=== PATIENT | female | born 2000 | race Caucasian/White ===

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

== ENCOUNTER 2021-08-19 21:56 | Outpatient (CLI) | payer MEDICAID, SELFPAY ==
[2021-08-19] VITALS (22 sets, daily range): BP systolic 101; BP diastolic 56; PULSE 88–125; RESP 15; TEMP 36.1–36.4; O2SAT 97–100; BMI 32.8
[2021-08-19 23:13] LABS: Bacteria Urine 2+ /hpf; Bilirubin Urine 1+ (Negative); Blood Urine 3+ (Negative); Glucose Urine UA Norm (Normal); Ketones Urine 3+ (Negative); Leukocyte Esterase Urine 2+ (Negative); Mucus Urine TRACE /hpf; Nitrate Urine Negative (Negative); Protein Urine 1+ (Negative); Specific Gravity, Urine 1.025 (1.005-1.030); Urine Appearance Clear (CLEAR); Urine Color Yellow (Yellow); Urobilinogen Urine 4 mg/dL (Negative); WBC Urine 25-40 /hpf (0-5); pH Urine 5 (5-7)
[2021-08-19 23:14] LABS: Add Urine Culture? Yes
[2021-08-20 00:31] VITALS: BP 117/60; PULSE 101
[2021-08-20 01:20] VITALS: BP 117/60; PULSE 101; RESP 15; TEMP 36.4
[2021-08-20 01:48] LABS: Amphetamines Screen Urine Negative (Negative); Barbiturates Screen Urine Negative (Negative); Benzodiazepines Screen Urine Negative (Negative); Cocaine Screen Urine Negative (Negative); Opiate Screen Urine Negative (Negative); PCP Screen Urine Negative (Negative); THC Screen Urine Negative (Negative)
== END 2021-08-20 00:20 | disposition home or self-care (01) ==
LOC: OPOB 21:57 → OBGYN 21:57
PROVIDERS: PCP Family Medicine; Visit Provider Obstetrics & Gynecology
DX: O26.899 Other specified pregnancy related conditions, unspecified trimester (principal); Z3A.00 Weeks of gestation of pregnancy not specified; R10.9 Unspecified abdominal pain
CPT/HCPCS: 59025; 80306; 81001; 87086; 99211

== ENCOUNTER → 2021-11-13 09:53 | Outpatient (BNVA) | payer OTHER, MEDICAID, SELFPAY | PROVIDERS: PCP Family Medicine; Visit Provider Registered Nurse | DX: Z79.899 Other long term (current) drug therapy (principal) | CPT/HCPCS: 80053; 82306; 84443; 85025 ==

== ENCOUNTER → 2022-01-09 16:24 | Outpatient (BNVA) | payer MEDICAID, SELFPAY | PROVIDERS: PCP Family Medicine; Visit Provider Emergency Medicine | DX: S90.31XA Contusion of right foot, initial encounter (principal); X58.XXXA Exposure to other specified factors, initial encounter | CPT/HCPCS: 73630 ==

== ENCOUNTER → 2022-05-30 09:37 | Outpatient (BNVA) | payer MEDICAID, SELFPAY | PROVIDERS: Visit Provider Emergency Medicine | DX: B34.9 Viral infection, unspecified (principal); J02.9 Acute pharyngitis, unspecified | CPT/HCPCS: 87071; 87426; 87880 ==

== ENCOUNTER 2022-09-24 20:25 | Outpatient (CLI) | payer MEDICAID, SELFPAY ==
[2022-09-24 20:37] VITALS: BP 109/69; PULSE 89; TEMP 35.4
[2022-09-24 20:38] VITALS: BMI 30.7
[2022-09-24 20:39] VITALS: RESP 16
[2022-09-24 20:58] LABS: Amphetamines Screen Urine Negative (Negative); Barbiturates Screen Urine Negative (Negative); Benzodiazepines Screen Urine Negative (Negative); Cocaine Screen Urine Negative (Negative); Opiate Screen Urine Negative (Negative); PCP Screen Urine Negative (Negative); THC Screen Urine Negative (Negative)
[2022-09-24 22:04] VITALS: BP 109/64; PULSE 77
== END 2022-09-24 22:09 | disposition home or self-care (01) ==
LOC: OPOB 20:32 → OBGYN 20:34
PROVIDERS: Visit Provider Family Medicine
DX: O47.9 False labor, unspecified (principal); Z3A.00 Weeks of gestation of pregnancy not specified
CPT/HCPCS: 59025; 80306; 99211

== ENCOUNTER → 2023-04-19 16:40 | Outpatient (BNVA) | payer MEDICAID, SELFPAY | PROVIDERS: Visit Provider Nurse Practitioner Family | DX: M79.672 Pain in left foot (principal) | CPT/HCPCS: 73630 ==

== ENCOUNTER → 2023-09-03 16:15 | Outpatient (BNVA) | payer MEDICAID, SELFPAY | PROVIDERS: Visit Provider Emergency Medicine | DX: S86.912A Strain of unspecified muscle(s) and tendon(s) at lower leg level, left leg, initial encounter (principal); X58.XXXA Exposure to other specified factors, initial encounter | CPT/HCPCS: 73562 ==

== ENCOUNTER → 2024-09-19 10:40 | Outpatient (BNVA) | payer OTHER, SELFPAY | PROVIDERS: Visit Provider Psychiatry & Neurology Psychiatry | DX: Z79.899 Other long term (current) drug therapy (principal) | CPT/HCPCS: 80053; 80061; 83036; 84443; 85025 ==

== ENCOUNTER → 2025-01-16 09:36 | Outpatient (BNVA) | payer MEDICAID, SELFPAY | PROVIDERS: Visit Provider Physician Assistant | DX: M25.362 Other instability, left knee (principal); M23.304 Other meniscus derangements, unspecified medial meniscus, left knee; M25.562 Pain in left knee; M25.569 Pain in unspecified knee | CPT/HCPCS: 73560; 73565 ==